=== PATIENT | male | born 1950 | race Caucasian/White ===

== ENCOUNTER 2018-10-30 05:56 | Inpatient (IN) ==
--- NOTE | 2018-10-19 11:17 | Anesthesiology Consultation ---
Date of Service October 19, 2018 Assessment & Plan Chart Review Chart Review: Acceptable Risk for Surgery Consults Requested none History Surgery Operation Date: 10/30/18 07:30 Proposed Procedures p Robotic Right Laparoscopic Assisted Partial Nephrectomy - Harris Sun MD Height/Weight Height: 5 ft 10 in Weight: 82.7 kg Allergies Allergy/AdvReac Type Severity Reaction Status Date / Time No Known Drug Allergies Allergy Unknown Uncoded 10/18/18 08:37 Medications Home Medications Medication Instructions Recorded Confirmed Last Taken ascorbic acid (vitamin C) [Vitamin 500 mg PO QAM 10/18/18 10/18/18 Unknown C] calcium carbonate-vitamin D3 1 cap PO QAM 10/18/18 10/18/18 Unknown [Calcium 600 + D(3)] cholecalciferol (vitamin D3) 5,000 unit PO QAM 10/18/18 10/18/18 Unknown [Vitamin D3] levetiracetam [Keppra XR] 500 mg PO HS 10/18/18 10/18/18 Unknown lovastatin 20 mg PO HS 10/18/18 10/18/18 Unknown multivitamin 1 tab PO QAM 10/18/18 10/18/18 Unknown naproxen sodium [Aleve] 220 mg PO Q8H PRN 10/18/18 10/18/18 Unknown omeprazole 40 mg PO QAM 10/18/18 10/18/18 Unknown Past Medical History Medical History GERD (gastroesophageal reflux disease) Hyperlipidemia Kidney mass RT SIDE MEASURING 4.9CM (REASON FOR SURGERY) Osteoarthritis Prostate cancer SURGERY Seizure 10/14/17 1 EPISODE (AMNESIA) REASON FOR KEPPRA Past Family History Family History Other No significant family history Past Surgical History Surgical History History of cholecystectomy History of colonoscopy History of esophagogastroduodenoscopy (EGD) History of prostatectomy History of tooth extraction Social History Smoking Status: Never smoker Do You Dip or Chew Tobacco: No Hx Alcohol Use: Yes Alcohol type: beer alcohol intake frequency: a few times a month Hx Substance Use: No substance use type: does not use Physical Exam Vital Signs Last Vital Signs Temp 36.6 C 10/19/18 10:36 Resp 16 10/19/18 10:36 BP 153/92 H 10/19/18 10:36 Pulse Ox 98 10/19/18 10:36 ENMT Mouth: no TMJ abnormality Thyromental Distance: > or= 3.5 Finger Breadths Mallampati Class: II Neck normal visual inspection Respiratory normal respiratory effort Auscultation: lungs clear to auscultation bilaterally Cardiovascular Rate/Rhythm: regular rate and regular rhythm Neurologic moves all extremities Psychiatric Orientation: alert and oriented x 3 Testing Electrocardiogram Date: 10/19/18 Findings: + NSR @ (61/min)
--- NOTE | 2018-10-19 11:25 | XRay Report ---
XR chest Pre-admission PA/Lat CLINICAL HISTORY: 68 years-old Male presenting with preoperative assessment. TECHNIQUE: PA and lateral views of the chest were obtained. COMPARISON: None. FINDINGS: Atherosclerosis of the aortic arch. Cardiac silhouette borderline enlarged. Mildly low lung lines. No focal opacity. No pleural effusion or pneumothorax. Degenerative changes of the thoracic spine. Chol ecystectomy clips noted. IMPRESSION: 1. Borderline cardiomegaly. No other convincing evidence of acute cardiopulmonary disease. Electronically signed by: Xavier Braxton M.D. 10/19/2018 11:24 AM
[2018-10-19 13:28] LABS: Basophils # (auto) 0.04 K/uL (0-0.2); Basophils % (auto) 0.6 %; Eosinophils # (auto) 0.07 K/uL (0-0.5); Hematocrit (blood only) 43.7 % (42-52); Hemoglobin 14.4 g/dL (14.0-18.0); Immature Granulocytes # (auto) 0.01 K/uL (0.00-0.02); Immature Granulocytes % (auto) 0.1 %; Lymphocytes # (auto) 1.65 K/uL (1.2-3.4); Lymphocytes % (auto) 23.8 %; Mean Corpuscular Hemoglobin 27.6 pg (25-34); Mean Corpuscular Volume 83.9 fL (80-100); Mean Platelet Volume 11.1 fL (7.4-10.4); Monocytes # (auto) 0.65 K/uL (0.11-0.59); Monocytes % (auto) 9.4 %; Neutrophils # (auto) 4.52 K/uL (1.4-6.5); Neutrophils % (auto) 65.1 %; Platelet Count 316 K/uL (130-400); RDW Coefficient of Variation 13.1 % (11.5-14.5); RDW Standard Deviation 39.7 fL (36.4-46.3); Red Blood Count 5.21 M/uL (4.7-6.1); White Blood Count 6.94 K/uL (4.8-10.8)
[2018-10-19 13:32] LABS: Appearance Urine Clear (Clear); Bilirubin Urine Negative (Negative); Blood Urine Negative (Negative); Color Urine Yellow; Glucose Urine UA Negative (Negative); Ketones Urine Negative (Negative); Leukocyte Esterase Urine Negative (Negative); Nitrite Urine Negative (Negative); Protein Urine Negative (Negative); Specific Gravity Urine 1.012 (1.000-1.030); Urobilinogen Urine Negative (Negative)
[2018-10-19 13:38] LABS: Calcium 10.3 mg/dl (8.5-10.1); Creatinine Clr Calc Pharmacy 63.5 ml/min; Est GFR (African American) 75.4; Potassium 4.4 mmol/L (3.5-5.1)
--- NOTE | 2018-10-22 13:59 | Anesthesiology Consultation ---
Date of Service October 22, 2018 Assessment & Plan (1) Encounter for pre-operative examination: Chart Review Chart Review: Acceptable Risk for Surgery Consults Requested none History Surgery Operation Date: 10/30/18 07:30 Proposed Procedures p Robotic Right Laparoscopic Assisted Partial Nephrectomy - Harris Sun MD Height/Weight Height: 5 ft 10 in Weight: 82.7 kg Allergies Allergy/AdvReac Type Severity Reaction Status Date / Time No Known Drug Allergies Allergy Unknown Uncoded 10/18/18 08:37 Medications Home Medications Medication Instructions Recorded Confirmed Last Taken ascorbic acid (vitamin C) [Vitamin 500 mg PO QAM 10/18/18 10/18/18 Unknown C] calcium carbonate-vitamin D3 1 cap PO QAM 10/18/18 10/18/18 Unknown [Calcium 600 + D(3)] cholecalciferol (vitamin D3) 5,000 unit PO QAM 10/18/18 10/18/18 Unknown [Vitamin D3] levetiracetam [Keppra XR] 500 mg PO HS 10/18/18 10/18/18 Unknown lovastatin 20 mg PO HS 10/18/18 10/18/18 Unknown multivitamin 1 tab PO QAM 10/18/18 10/18/18 Unknown naproxen sodium [Aleve] 220 mg PO Q8H PRN 10/18/18 10/18/18 Unknown omeprazole 40 mg PO QAM 10/18/18 10/18/18 Unknown Past Medical History Medical History GERD (gastroesophageal reflux disease) Hyperlipidemia Kidney mass RT SIDE MEASURING 4.9CM (REASON FOR SURGERY) Osteoarthritis Prostate cancer SURGERY Seizure 10/14/17 1 EPISODE (AMNESIA) REASON FOR KEPPRA Past Family History Family History Other No significant family history Past Surgical History Surgical History History of cholecystectomy History of colonoscopy History of esophagogastroduodenoscopy (EGD) History of prostatectomy History of tooth extraction Social History Smoking Status: Never smoker Do You Dip or Chew Tobacco: No Hx Alcohol Use: Yes Alcohol type: beer alcohol intake frequency: a few times a month Hx Substance Use: No substance use type: does not use Physical Exam Vital Signs Last Vital Signs Temp 36.6 C 10/19/18 10:36 Resp 16 10/19/18 10:36 BP 153/92 H 10/19/18 10:36 Pulse Ox 98 10/19/18 10:36 Testing Laboratory Results 10/19/18 10:56 10/19/18 10:56 Urine Color Yellow 10/19/18 10:56 Urine Appearance Clear (Clear) 10/19/18 10:56 Urine pH 6.0 (4.5-7.5) 10/19/18 10:56 Ur Specific [place] 1.012 (1.000-1.030) 10/19/18 10:56 Urine Protein Negative (Negative) 10/19/18 10:56 Urine Glucose (UA) Negative (Negative) 10/19/18 10:56 Urine Ketones Negative (Negative) 10/19/18 10:56 Urine Nitrite Negative (Negative) 10/19/18 10:56 Ur Leukocyte Esterase Negative (Negative) 10/19/18 10:56 10/19/18 10:56 Urine Culture - Final Urine,Clean Catch No growth - less than 1,000 colonies/mL.
[2018-10-30] MEDS ORDERED: LR 15ML/HR IV SCH (06:00)
[2018-10-30] MEDS ORDERED: fentaNYL citrate 100 MCG/2 ML VIAL ONE ×2 (06:57→10:01)
[2018-10-30] MEDS ORDERED: MIDAZOLAM HCL 1 MG/ML 2ML VIAL ONE (06:57)
[2018-10-30] MEDS ORDERED: ACETAMINOPHEN 1000 MG/100 ML IV IV ONE (07:02)
[2018-10-30] MEDS ORDERED: BUPIVACAINE 0.5 % 5 MG/1 ML MPF 30ML VIAL ONE (07:28)
[2018-10-30] MEDS ORDERED: GELATIN SPONGE SZ 100 ONE (07:28)
[2018-10-30] MEDS ORDERED: MoRPHine SULFATE 10 MG/ML CARP/VIAL IV PRN (07:48)
[2018-10-30] MEDS ORDERED: ONDANSETRON INJ 2 MG/ML 2 ML VIAL IV PRN ×2 (07:48→13:53)
[2018-10-30] MEDS ORDERED: ePHEDrine sulfate 50 MG/ML AMP IV PRN (07:48)
[2018-10-30] MEDS ORDERED: ATROPINE SULFATE 0.1 MG/ML 10ML SYR IV PRN (07:48)
--- NOTE | 2018-10-30 08:35 | History & Physical Bridge Note ---
Date of Service October 30, 2018 History & Physical Bridge Note I have examined the patient, reviewed the History & Physical and in the interval since the performance of the History & Physical I have noted the following changes of clinical significance: no changes noted
[2018-10-30] MEDS ORDERED: CEFAZOLIN 2000MG 2,000 MG/15 ML SYR IV ONE (08:42)
[2018-10-30] MEDS ORDERED: CEFAZOLIN 2,000 MG/15 ML IV PUSH IV ONE (08:44)
[2018-10-30] MEDS ORDERED: HYDROmorphone INJ 2 MG/ML SYR/VIAL ONE (09:36)
[2018-10-30] MEDS ORDERED: LIDOCAINE HCL 2% 2 ML VIAL/AMP(20MG/ML) INFIL ONE (10:00)
[2018-10-30] MEDS ORDERED: NEOSTIGMINE METHYLSULFATE 5 MG/5 ML SYR ONE (10:00)
[2018-10-30] MEDS ORDERED: PROPOFOL IV EMULSION 10 MG/ML 20 ML VIAL IV ONE (10:00)
[2018-10-30] MEDS ORDERED: DEXAMETHASONE SOD INJ 4 MG/ML VIAL ONE (10:00)
[2018-10-30] MEDS ORDERED: GLYCOPYRROLATE 0.2 MG/ML VIAL ONE (10:00)
[2018-10-30] MEDS ORDERED: ONDANSETRON INJ 2 MG/ML 2 ML VIAL ONE (10:00)
[2018-10-30] MEDS ORDERED: MANNITOL 25% 12.5 GM/50 ML VIAL IV ONE (10:08)
[2018-10-30] MEDS ORDERED: TISSEEL FIBRIN SEALANT 10ML TOP ONE (11:15)
[2018-10-30 12:22] LABS: Basophils # (auto) 0.01 K/uL (0-0.2); Basophils % (auto) 0.1 %; Hematocrit (blood only) 42.6 % (42-52); Hemoglobin 14.2 g/dL (14.0-18.0); Immature Granulocytes # (auto) 0.05 K/uL (0.00-0.02); Immature Granulocytes % (auto) 0.3 %; Lymphocytes # (auto) 1.08 K/uL (1.2-3.4); Lymphocytes % (auto) 6.7 %; Mean Corpuscular Hemoglobin 28.2 pg (25-34); Mean Corpuscular Volume 84.7 fL (80-100); Mean Platelet Volume 10.1 fL (7.4-10.4); Monocytes # (auto) 0.25 K/uL (0.11-0.59); Monocytes % (auto) 1.6 %; Neutrophils % (auto) 91.3 %; Platelet Count 296 K/uL (130-400); RDW Coefficient of Variation 13.3 % (11.5-14.5); Red Blood Count 5.03 M/uL (4.7-6.1); White Blood Count 16.09 K/uL (4.8-10.8)
[2018-10-30 12:28] LABS: Mean Corpuscular Hgb Conc 33.3 g/dL (32-36)
[2018-10-30] MEDS: fentaNYL citrate 100 MCG/2 ML VIAL IV PRN ×2 (12:32→12:38)
[2018-10-30 12:38] LABS: BUN Creatinine Ratio 11.3 (10-20); Calcium 9.4 mg/dl (8.5-10.1); Creatinine Clr Calc Pharmacy 43.7 ml/min; Est GFR (Non-African American) 41.4; Potassium 4.6 mmol/L (3.5-5.1)
--- NOTE | 2018-10-30 12:39 | Operative Report ---
Post Operative Report Pre & Post Diagnosis Operation Date: 10/30/18 08:10 Pre-Op Diagnosis: Right Renal Mass Post-Op Diagnosis: Right Renal Mass Procedure Operation Date: 10/30/18 08:10 Actual Procedures p Right Robotic Laparoscopic Assisted Partial Nephrectomy(Right) - Harris Sun MD Surgeon Too Sun MD Senior Linux Administrator Rubén Guardado MD; ALYSSA Aparicio Estimated Blood Loss 50 Findings Consistent with Post-Op Diagnosis (warm ischemia time - 9minutes) Specimens 1. fat over tumor 2. right renal tumor Description of Procedure Patient was identified in the preoperative holding area, appropriate informed consents reviewed and completed and the patient was transported to the operating suite. Upon arrival he received appropriate preoperative antibiotic in the form of Ancef. Adequate general anesthesia was achieved and he was placed in the left side down right side up lateral decubitus position with the bed flexed. He was padded and braced appropriately and underwent standard sterile draping. To begin the case I passed a Veress needle under the right costal margin and insufflated the abdomen to 15 mmHg. A 12 mm port was placed at the lateral border of the rectus muscle approximately 5 cm above the umbilicus. Inspection at that level revealed no varus trauma, no significant adhesive disease. A robotic port was placed approximately 8 cm inferior and 4 cm lateral to the first port. A second was placed at the costal margin approximately 8 cm above the 12 mm port. 2 insurance claims assistant ports were placedthe first in the midline just above the umbilicus the second at the lateral border of the rectus muscle approximately 8 cm inferior to the initial port. A 5 mm xiphoid port was placed as a potential liver retractor. At that time we docked the robot. Initial inspection revealed liver to be flipped relatively cephalad and not obstructing her view of the kidney. The colon was visualized draped over the kidney. I was able to mobilize the white line of Toldt and medialize the colon. This subsequently revealed the duodenum which was kocherized identifying the inferior vena cava. A renal vein was e asily identified joining the IVC. I was able to identify the gonadal vein and ureter as well. Of note, the renal vein proved to have a second branch immediately posterior to it. Immediately posterior and inferior to this we identified a single renal artery. All the structures were skeletonized. After identifying the hilar structures, I turned my attention to the kidney. We divided Gerota's fascia on the anterior surface of the kidney and began dissecting circumferentially around the kidney. I mobilized outside of Gerota's fascia at the upper and lateral aspect of the kidney to further facilitate mobilization. As we near the presumed area of the mass, I performed an ultrasound identifying the we then continued our dissection until we circumferentially cleared kidney around the junction with the mass. I preplaced 2 sutures into the upper abdomen. We administered 12.5 g of mannitol. A single short curved bulldog clamp was placed across the renal artery and a long straight bulldog across the 2 renal veins. The kidney was flipped and we began our resection of tumor. The tumor was noted to be relatively shallow on imaging and during this dissection that appeared to be the case as well. I incised circumferentially around the tumor and took approximately a 1 cm deep plane under the inner most border of the tumor. There was no visualized tumor in the deep aspect of this resection. After entirely excising the tumor, I began with Riya utilizing the preplaced stitches. There were 4 passes across the defect before it was entirely closed. At that time we unclamped the kidneyare warm ischemia time was 9 minutes. There was no active bleeding after unclamping the kidney. We watched for several moments before placing the tumor as well as fat over the tumor into an Endo Catch bag. Tisseel was sprayed over the defect in the kidney Gerota's fascia closed. SILVESTRE drain was guided into the left lateral most robotic port. Specimen was extracted through expansion of the lower insurance claims assistant port. All other ports were subsequently removed. Fascia was closed on all 12 mm ports in the extraction site utilizing 0 Vicryl. 4-0 Monocryl was utilized to close the skin with Dermabond as a final dressing. The drain was sutured in place utilizing a 2-0 silk stitch. Patient was subsequently extubated and taken to the PACU in stable condition. There were no complications. Rubén Guardado and Anat Tejada were present and assisted throughout the entire case. I attest to the content of the Intraoperative Record and any orders documented therein. Any exceptions are noted below.
--- NOTE | 2018-10-30 13:06 | Anesthesiology Progress Note ---
Date of Service October 30, 2018 Anesthesia Post Procedure Vital Signs Vital Signs: Temp Pulse Pulse Resp BP Pulse Ox 10/30/18 12:55 36.4 C L 88 16 124/87 98 10/30/18 12:45 36.3 C L 71 14 138/86 97 10/30/18 12:35 36.3 C L 87 13 132/96 100 10/30/18 12:25 36.3 C L 82 11 L 141/100 H 100 10/30/18 12:15 36.3 C L 87 14 139/102 H 100 10/30/18 12:07 36.3 C L 95 H 16 154/95 H 99 10/30/18 06:23 36.6 C 89 20 135/100 98 Pain Intensity Right Anterior Abdomen: Pain Intensity: 3 Transfer of Care Handoff Completed per policy Notes Mental Status: alert / awake / arousable and participated in evaluation Patient Amnestic to Procedure: Yes Nausea / Vomiting: adequately controlled Pain: adequately controlled Airway Patency, RR, SpO2: stable & adequate BP & HR: stable & adequate Hydration State: stable & adequate Anesthetic Complications: no major complications apparent and Pt Satisfied with anesthetic care
[2018-10-30] MEDS ORDERED: ROCURONIUM BROMIDE 10 MG/ML 5 ML VIAL ONE (13:41)
[2018-10-30] MEDS ORDERED: OXYCODONE HCL IR 5 MG TAB (IMMEDIATE RELEASE) PO PRN (13:53)
[2018-10-30] MEDS ORDERED: MoRPHine SULFATE 4 MG/ML 1 ML CARP\\VIAL IV PRN (13:53)
[2018-10-30] MEDS: LACTATED RINGER'S 1,000 ML IV SCH ×3 (14:43→23:30)
[2018-10-30] MEDS ORDERED: KEPPRA XR~ORDER AWAITING ACTION SCH (15:00)
[2018-10-30] MEDS: CEFAZOLIN 2000MG 2,000 MG/15 ML SYR IV SCH (17:33)
[2018-10-30] MEDS: ACETAMINOPHEN 1,000 MG/100 ML VIAL IV PRN (17:41)
[2018-10-30] MEDS: HEPARIN SOD 5,000 UNIT/0.5 ML VIAL SQ SCH (20:25)
[2018-10-30] MEDS: LEVETIRACETAM 500 MG PO SCH (20:27)
[2018-10-30] MEDS: DOCUSATE SODIUM 100 MG CAP PO SCH (20:27)
[2018-10-30] MEDS: FAMOTIDINE 20 MG in SYRINGE 3 ML IV SCH (20:28)
[2018-10-30] MEDS: LOVASTATIN 20 MG TAB PO SCH (21:13)
[2018-10-31] MEDS: CEFAZOLIN 2000MG 2,000 MG/15 ML SYR IV SCH ×2 (01:04→08:02)
[2018-10-31] MEDS: ACETAMINOPHEN 1,000 MG/100 ML VIAL IV PRN (02:04)
[2018-10-31 06:55] LABS: Basophils # (auto) 0.01 K/uL (0-0.2); Basophils % (auto) 0.1 %; Hematocrit (blood only) 39.2 % (42-52); Hemoglobin 12.8 g/dL (14.0-18.0); Immature Granulocytes # (auto) 0.03 K/uL (0.00-0.02); Immature Granulocytes % (auto) 0.3 %; Lymphocytes # (auto) 1.81 K/uL (1.2-3.4); Lymphocytes % (auto) 15.2 %; Mean Corpuscular Hemoglobin 27.2 pg (25-34); Mean Corpuscular Hgb Conc 32.7 g/dL (32-36); Mean Corpuscular Volume 83.2 fL (80-100); Mean Platelet Volume 10.3 fL (7.4-10.4); Monocytes # (auto) 1.44 K/uL (0.11-0.59); Monocytes % (auto) 12.1 %; Neutrophils # (auto) 8.65 K/uL (1.4-6.5); Neutrophils % (auto) 72.3 %; Platelet Count 305 K/uL (130-400); RDW Coefficient of Variation 13.4 % (11.5-14.5); RDW Standard Deviation 40.3 fL (36.4-46.3); Red Blood Count 4.71 M/uL (4.7-6.1); White Blood Count 11.94 K/uL (4.8-10.8)
[2018-10-31 07:27] LABS: BUN Creatinine Ratio 11.4 (10-20); Calcium 9.1 mg/dl (8.5-10.1); Creatinine Clr Calc Pharmacy 46.2 ml/min; Est GFR (African American) 51.3; Est GFR (Non-African American) 44.3
[2018-10-31] MEDS: MULTIVITAMIN TAB PO SCH (08:01)
[2018-10-31] MEDS: LACTATED RINGER'S 1,000 ML IV SCH ×3 (08:01→23:34)
[2018-10-31] MEDS: DOCUSATE SODIUM 100 MG CAP PO SCH ×2 (08:01→20:35)
--- NOTE | 2018-10-31 08:01 | Urology Progress Note ---
Date of Service October 31, 2018 Assessment & Plan (1) Renal neoplasm: POD #1 s/p R robotic partial nephrectomy - doing well - labs and vitals appropriate - cont ambulation - advance diet - d/c alex - drain later today Subjective did well overnight ambulated pain relatively well controlled no nausea/etc Physical Exam Physical Exam: incisions appropriate - skin glue in place no erythema no discharge abd soft SILVESTRE serosang urine clear Results & Data Vital Signs (Past 12 Hours) Vital Signs Temp Pulse Pulse Resp BP Pulse Ox 10/31/18 07:31 37.1 C 87 16 153/95 H 93 10/31/18 03:47 36.9 C 75 18 144/84 H 95 10/30/18 23:20 37.2 C 102 H 19 132/83 94 PG Care Time/CCT Total # of Minutes Spent Total Time Spent with Patient: Total time spent is greater than 50% in coordination of care (as documented) at patient's floor/unit and/or counseling patient:
[2018-10-31] MEDS: FAMOTIDINE 20 MG in SYRINGE 3 ML IV SCH ×2 (08:02→20:35)
[2018-10-31] MEDS: HEPARIN SOD 5,000 UNIT/0.5 ML VIAL SQ SCH ×2 (08:11→20:35)
--- NOTE | 2018-10-31 10:41 | Anesthesiology Progress Note ---
Date of Service October 31, 2018 Anesthesia Post Procedure Vital Signs Vital Signs: Temp Pulse Pulse Resp BP Pulse Ox 10/31/18 07:59 138/91 10/31/18 07:31 37.1 C 87 16 153/95 H 93 10/31/18 03:47 36.9 C 75 18 144/84 H 95 10/30/18 23:20 37.2 C 102 H 19 132/83 94 10/30/18 16:37 36.3 C L 103 H 18 124/80 97 10/30/18 15:35 36.5 C 93 H 18 116/76 94 10/30/18 14:30 36.5 C 91 H 16 130/70 96 10/30/18 14:00 86 16 123/81 94 10/30/18 13:30 36.5 C 89 89 18 133/83 98 10/30/18 13:05 36.4 C L 86 14 125/87 100 10/30/18 12:55 36.4 C L 88 16 124/87 98 10/30/18 12:45 36.3 C L 71 14 138/86 97 10/30/18 12:35 36.3 C L 87 13 132/96 100 10/30/18 12:25 36.3 C L 82 11 L 141/100 H 100 10/30/18 12:15 36.3 C L 87 14 139/102 H 100 10/30/18 12:07 36.3 C L 95 H 16 154/95 H 99 Pain Intensity Right Anterior Abdomen: Pain Intensity: 2 Notes Mental Status: alert / awake / arousable and participated in evaluation Patient Amnestic to Procedure: Yes Nausea / Vomiting: see Notes below Pain: adequately controlled Airway Patency, RR, SpO2: stable & adequate BP & HR: stable & adequate Hydration State: stable & adequate Anesthetic Complications: no major complications apparent and Pt Satisfied with anesthetic care
[2018-10-31] MEDS: OXYCODONE HCL IR 5 MG TAB (IMMEDIATE RELEASE) PO PRN ×3 (11:16→20:34)
[2018-10-31] MEDS: LOVASTATIN 20 MG TAB PO SCH (20:35)
[2018-10-31] MEDS: LEVETIRACETAM 500 MG PO SCH (20:35)
[2018-11-01] MEDS: ACETAMINOPHEN 1,000 MG/100 ML VIAL IV PRN (00:02)
[2018-11-01 07:11] LABS: Basophils # (auto) 0.02 K/uL (0-0.2); Basophils % (auto) 0.2 %; Eosinophils # (auto) 0.01 K/uL (0-0.5); Eosinophils % (auto) 0.1 %; Hematocrit (blood only) 38.5 % (42-52); Hemoglobin 12.6 g/dL (14.0-18.0); Immature Granulocytes # (auto) 0.02 K/uL (0.00-0.02); Immature Granulocytes % (auto) 0.2 %; Lymphocytes # (auto) 1.02 K/uL (1.2-3.4); Lymphocytes % (auto) 9.7 %; Mean Corpuscular Hemoglobin 27.5 pg (25-34); Mean Corpuscular Hgb Conc 32.7 g/dL (32-36); Mean Corpuscular Volume 83.9 fL (80-100); Mean Platelet Volume 10.2 fL (7.4-10.4); Monocytes # (auto) 1.14 K/uL (0.11-0.59); Monocytes % (auto) 10.8 %; Neutrophils # (auto) 8.32 K/uL (1.4-6.5); Platelet Count 241 K/uL (130-400); RDW Coefficient of Variation 13.7 % (11.5-14.5); RDW Standard Deviation 41.5 fL (36.4-46.3); Red Blood Count 4.59 M/uL (4.7-6.1); White Blood Count 10.53 K/uL (4.8-10.8)
[2018-11-01 07:38] LABS: BUN Creatinine Ratio 9.7 (10-20); Calcium 9.2 mg/dl (8.5-10.1); Creatinine Clr Calc Pharmacy 51.8 ml/min; Est GFR (African American) 58.9; Est GFR (Non-African American) 50.8; Potassium 4.2 mmol/L (3.5-5.1)
--- NOTE | 2018-11-01 07:57 | Urology Progress Note ---
Date of Service November 01, 2018 Assessment & Plan (1) Renal neoplasm: POD#2 s/p R partial nephrectomy - doing great SILVESTRE out d/c home Subjective doing very well ambulating pain controlled voiding well wesly diet Physical Exam Physical Exam: AFVSS NAD incisions appropriate SILVESTRE serosang Results & Data Vital Signs (Past 12 Hours) Vital Signs Temp Pulse Pulse Resp BP Pulse Ox 11/01/18 07:15 37.4 C 74 14 164/98 H 90 11/01/18 01:15 37.4 C 11/01/18 00:15 38.2 C H 10/31/18 23:16 37.8 C H 106 H 20 145/78 H 90 PG Care Time/CCT Total # of Minutes Spent Total Time Spent with Patient: Total time spent is greater than 50% in coordination of care (as documented) at patient's floor/unit and/or counseling patient:
[2018-11-01] MEDS: FAMOTIDINE 20 MG in SYRINGE 3 ML IV SCH (08:20)
[2018-11-01] MEDS: DOCUSATE SODIUM 100 MG CAP PO SCH (08:21)
[2018-11-01] MEDS: MULTIVITAMIN TAB PO SCH (08:21)
[2018-11-01] MEDS: HEPARIN SOD 5,000 UNIT/0.5 ML VIAL SQ SCH (08:28)
--- NOTE | 2018-11-10 08:53 | Discharge Summary ---
Date of Service November 10, 2018 Admission HPI Per Admitting Provider Patient admitted for a right robotic assisted partial nephrectomy. Principal Diagnosis Renal cell carcinoma Discharge Data Allergies Allergy/AdvReac Type Severity Reaction Status Date / Time No Known Drug Allergies Allergy Unknown Uncoded 10/30/18 06:20 Procedures Performed Operation Date: 10/30/18 08:10 Actual Procedures p Right Robotic Laparoscopic Assisted Partial Nephrectomy(Right) - Harris Sun MD Hospital Course (1) Renal cell carcinoma: Patient was admitted for a right robotic assisted laparoscopic partial nephrectomy. Details of the procedure as dictated previously. In summary, he tolerated the procedure extremely well. His catheter was removed on postoperative day 1. He was ambulatory. His pain is well controlled. On the morning of postoperative day 2 he was feeling quite well with minimal pain. He was subsequently discharged home in stable condition. There were no complicati ons. Total Time Total Time Spent Total Time Spent (In Minutes): 20 Total Time Includes: Examination of the Patient, Discharge Planning and Medication Reconciliation Discharge Plan Discharge Items Patient Disposition: Home - Self-Care Reason For Visit: Renal Mass Discharge Diagnosis: Renal Mass Activity: Per Instructions section Lifting: No more than 10 pounds Bathing Comment: Shower tomorrow, do not scrub/pick glue. No soaking. Sexual Activity: Wait until after follow-up appointment Exercise/Sports: None Exercise Comment: Walking and stairs in your home are okay. Driving/Machine Use: No driving while taking narcotic pain medication Non-emergency contact: Urologist Call non-emergency contact if: your pain is concerning for you, your temperature is above 101, your wound has increased redness, your wound has increased drainage and your wound pain has increased Follow-up/Referrals: Brenden Woods [Primary Care Provider] - Diet: Regular Addtl Attending Provider Instructions: Please keep all appointments at Dr. Sun's office as scheduled. Call office at [phone] if you have any questions or concerns. Pain: take Tylenol as needed for mild pain. Take pain medication (oxycodone) as needed for moderate/severe pain. Bowels: take stool softener (Colace) twice daily for 2 weeks, then as needed for constipation. Pathology results will be discussed at your follow up appointment. Pending Studies at Discharge: Yes Studies:: Pathology Stand-Alone Forms: [facility], Opioid Pain Management Medications and DC Order Prescriptions: New docusate sodium [Colace] 100 mg capsule 100 mg PO BID PRN (Reason: constipation) Qty: 60 RF: 0 oxycodone 5 mg tablet 5 mg PO Q6H PRN (Reason: pain) Qty: 10 RF: 0 Continued multivitamin Tablet 1 tab PO QAM RF: 0 omeprazole 40 mg Capsule,Delayed Release(Dr/Ec) 40 mg PO QAM RF: 0 ascorbic acid (vitamin C) [Vitamin C] 500 mg Tablet 500 mg PO QAM RF: 0 lovastatin 20 mg Tablet 20 mg PO HS RF: 0 Calcium 600 + D(3) 600 mg calcium- 200 unit Capsule 1 cap PO QAM RF: 0 levetiracetam [Keppra XR] 500 mg Tablet Extended Release 24 Hr 500 mg PO HS RF: 0 cholecalciferol (vitamin D3) [Vitamin D3] 5,000 unit Tablet 5,000 unit PO QAM RF: 0 Discontinued naproxen sodium [Aleve] 220 mg Tablet 220 mg PO Q8H PRN (Reason: Pain) RF: 0 Discharge Orders: Discharge Order (Routine); Ordered 11/01/18 Ordered By: Anat Wagner/Other Patient Handouts: Nephrectomy Dc, Nephrectomy Dc Ch Admission Data Admit Date/Time: 10/30/18 11:57 Attending Provider: Harris Sun Admit Provider: Harris Sun Primary Care Provider: Brenden Woods Other Interventions: Discharge Summary Assessment (RN) Last Done: 11/01/18 10:48 DC Date/Time DO NOT enter until pt leaves facility: 11/01/18 15:55
== END 2018-11-01 15:55 | disposition home or self-care (01) | DRG 658 ==
LOC: ASU 05:56 → 3W 11:57